=== PATIENT | female | born 1990 | race Caucasian/White ===

== ENCOUNTER 2017-08-27 00:56 | Emergency (ER) | payer MEDICAID, SELFPAY ==
[2017-08-27 00:57] VITALS: BP 115/81; PULSE 72; RESP 20; TEMP 36.6; O2SAT 100; BMI 23.5
[2017-08-27] MEDS: Naproxen 500 MG Tablet PO (01:07)
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
--- NOTE | 2017-08-27 02:12 | ED.DEP ---
ED Disposition - Plan for ED Patient: Disposition: Home or Assisted Living Chief Complaint: Upper Extremity Injury Instructions: ED Laceration Hand Prescriptions: Cephalexin [Keflex] 500 mg PO Q6 #40 cap Naproxen 500 mg PO BID PRN PRN #20 tab PRN Reason: Pain Referrals: Torri Gustafson MD [Primary Care Provider] -
[2017-08-27 02:20] VITALS: RESP 16
== END 2017-08-27 02:21 | disposition home or self-care (01) ==
PROVIDERS: Emergency Provider Emergency Medicine; Family Provider Internal Medicine; PCP Internal Medicine
DX: S61.212A Laceration without foreign body of right middle finger without damage to nail, initial encounter (principal); W25.XXXA Contact with sharp glass, initial encounter; Y93.9 Activity, unspecified; Y92.9 Unspecified place or not applicable; Y99.9 Unspecified external cause status; F32.9 Major depressive disorder, single episode, unspecified; F41.9 Anxiety disorder, unspecified; Z72.0 Tobacco use; Z79.899 Other long term (current) drug therapy
CPT/HCPCS: 73130; 99283

== ENCOUNTER 2017-10-01 04:02 | Emergency (ER) | payer MEDICAID, SELFPAY ==
[2017-10-01 04:03] VITALS: BP 124/75; PULSE 95; RESP 16; TEMP 36.8; O2SAT 98; BMI 23.2
[2017-10-01 04:24] LABS: Red Blood Cells-Urine 0 SEEN /hpf (0-5)
[2017-10-01 04:27] LABS: Color, Urine Yellow (Yellow); Glucose, Dipstick 50 mg/dl (Normal); Ketone-Dipstick 5 mg/dl (Negative); Leukocyte Esterase-Dipstick 500 /ul (Negative); Nitrite-Dipstick Positive (Negative); Occult Blood-Urine 50 /ul (Negative); Protein-Dipstick 30 mg/dl (Negative); Specific Gravity, Urine 1.025 (1.002-1.030); Urine Bilirubin Dipstick Negative (Negative); Urine Clarity Cloudy (Clear); Urine Urobilinogen 1 mg/dl (Normal)
[2017-10-01 04:45] LABS: Bacteria 1+ /hpf (None Seen); Squamous Epithelial Cells - UA 5-10 SEEN /hpf (5-10); White Blood Cells 50-100 SEEN /hpf (0-5)
[2017-10-01 04:46] LABS: Mucous, Urine 1+ /hpf (<or=2+)
[2017-10-01 04:47] LABS: Internal QC Validated? YES +Cl - CLEAR BKGD; Pregnancy, Urine Negative Negative
[2017-10-01] MEDS: Smz/Tmp Ds Tablet 1 TABLET PO (05:01)
[2017-10-01 07:21] LABS: Chlamydia Trachomatis by PCR POSITIVE (Negative); Neisserai gonorrhoeae by PCR Positive (Negative); Probe Check PASS
--- NOTE | 2017-10-01 07:23 | ED.RN ---
lab called with positive results. positive gonorrheaea and positive chalm. Dr. jaramillo made aware. orders to be placed at this time.
--- NOTE | 2017-10-01 07:32 | ED.VISSUMM ---
- ER Visit Summary Date of Service: 10/01/17 Chief Complaint: [Concern for sexually transmitted disease] History of Present Illness: The patient is a 26 F [presents to the emergency department with concern for possible STD. Patient states she received a phone call today from her ex-boyfriend who is just gotten out of half-way who told her that he was diagnosed in [facility] with gonorrhea and chlamydia both. Patient states that she has had a discharge for a couple of months. Patient has had some intermittent vaginal bleeding. Patient does not think she is as she has had a tubal ligation. Patient also has dysuria, urgency, and frequency. Patient denies any fever. Patient denies any vomiting.] Physical Examination: [HEENT-PERRLA, EOMI. Cranial nerves II through XII grossly intact. TMs clear. Mucous membranes moist. No adenopathy. Cardiovascular-regular rate and rhythm without murmur or ectopy Lungs-clear to auscultation, chest wall stable without crepitus or subcu emphysema Abdomen-normoactive bowel sounds, soft, nontender, no rebound or rigidity, no peritoneal signs. exam-normal external genitalia. On speculum exam there is small amount of whitish discharge within the vaginal vault with no blood noted. Patient had no cervical motion tenderness and no adnexal masses palpated. Uterus was normal in size. Extremities-intact ?4, normal range of motion, normal pulses, atraumatic] Test Results: [Urinalysis obtained was positive for nitrites, 50-100 WBCs, 5-10 epis. HCG was negative. Urine for GC and chlamydia both positive.] Emergency Department Course and Treatment: [Patient initially medicated with Bactrim as well as 2 g of Flagyl as she had 10-25 WBCs on her wet prep. Patient also will be medicated with a gram of Zithromax and 250 mg of Rocephin.] Treatment Plan: [Patient will be given Bactrim for 5 days. Patient will be given Pyridium. ] Disposition] discharge to home in stable condition Impression: [Urinary tract infection GC and Chlamydia vaginitis] This note was generated with [employer] software. It may contain incorrect words, spelling, and punctuation that were not noted in review of the chart prior to signing ED Disposition - Plan for ED Patient: Chief Complaint: Female C/O Referrals: Torri Gustafson MD [Primary Care Provider] -
--- NOTE | 2017-10-01 07:36 | ED.DCSUM_ITS ---
- ER Visit Summary Date of Service: 10/01/17 Chief Complaint: [Concern for sexually transmitted disease] History of Present Illness: The patient is a 26 F [presents to the emergency department with concern for possible STD. Patient states she received a phone call today from her ex-boyfriend who is just gotten out of senior living who told her that he was diagnosed in senior living with gonorrhea and chlamydia both. Patient states that she has had a discharge for a couple of months. Patient has had some intermittent vaginal bleeding. Patient does not think she is as she has had a tubal ligation. Patient also has dysuria, urgency, and frequency. Patient denies any fever. Patient denies any vomiting.] Physical Examination: [HEENT-PERRLA, EOMI. Cranial nerves II through XII grossly intact. TMs clear. Mucous membranes moist. No adenopathy. Cardiovascular-regular rate and rhythm without murmur or ectopy Lungs-clear to auscultation, chest wall stable without crepitus or subcu emphysema Abdomen-normoactive bowel sounds, soft, nontender, no rebound or rigidity, no peritoneal signs. exam-normal external genitalia. On speculum exam there is small amount of whitish discharge within the vaginal vault with no blood noted. Patient had no cervical motion tenderness and no adnexal masses palpated. Uterus was normal in size. Extremities-intact ?4, normal range of motion, normal pulses, atraumatic] Test Results: [Urinalysis obtained was positive for nitrites, 50-100 WBCs, 5-10 epis. HCG was negative. Urine for GC and chlamydia both positive.] Emergency Department Course and Treatment: [Patient initially medicated with Bactrim as well as 2 g of Flagyl as she had 10-25 WBCs on her wet prep. Patient also will be medicated with a gram of Zithromax and 250 mg of Rocephin.] Treatment Plan: [Patient will be given Bactrim for 5 days. Patient will be given Pyridium. ] Disposition] discharge to home in stable condition Impression: [Urinary tract infection GC and Chlamydia vaginitis] This note was generated with [employer] software. It may contain incorrect words, spelling, and punctuation that were not noted in review of the chart prior to signing ED Disposition - Plan for ED Patient: Chief Complaint: Female C/O Referrals: Torri Gustafson MD [Primary Care Provider] -
--- NOTE | 2017-10-01 07:36 | ED.DEP ---
ED Disposition - Plan for ED Patient: Chief Complaint: Female C/O Instructions: ED UTI Cystitis Female, Vaginal Infection: Bacterial Vaginosis Prescriptions: Phenazopyridine HCl [Pyridium] 200 mg PO BID PRN PRN #10 tab PRN Reason: Pain Smz/Tmp Ds [Bactrim Ds] 1 tab PO BID #10 tab Referrals: Torri Gustafson MD [Primary Care Provider] - 5-7 Days
[2017-10-01] MEDS: Azithromycin 250 MG Tablet 1000 MG PO (07:45)
[2017-10-01] MEDS: Ceftriaxone 500 MG Vial 250 MG IM (07:53)
[2017-10-01 08:17] VITALS: PULSE 70; RESP 15; O2SAT 97
== END 2017-10-01 08:15 | disposition home or self-care (01) ==
PROVIDERS: Emergency Provider Emergency Medicine; Family Provider Internal Medicine; PCP Internal Medicine
DX: A56.02 Chlamydial vulvovaginitis (principal); A54.02 Gonococcal vulvovaginitis, unspecified; N39.0 Urinary tract infection, site not specified; Z72.0 Tobacco use; Z98.51 Tubal ligation status; Z79.899 Other long term (current) drug therapy
CPT/HCPCS: 81001; 81025; 87210; 87491; 87591; 96372; 99283

== ENCOUNTER 2017-11-24 02:17 | Emergency (ER) | payer MEDICAID, SELFPAY ==
[2017-11-24 02:18] VITALS: BP 125/89; PULSE 105; RESP 16; TEMP 36.7; O2SAT 98; BMI 22.3
--- NOTE | 2017-11-24 02:27 | RAD_ITS ---
STUDY: X-RAY - RIGHT HAND REASON FOR EXAM: Female, 27 years old. Trauma to nail of ring finger. TECHNIQUE: 3 view(s) of the hand. COMPARISON: None. FINDINGS: Normal radiocarpal articulation. Normal distal radioulnar joint. Normal visualized carpal bones. Normal carpal articulations Normal carpometacarpal articulation of the thumb. Normal second through fifth carpometacarpal joints. Normal metacarpi. Normal metacarpophalangeal joint of the thumb. Normal interphalangeal joint of the thumb. Normal proximal and distal phalanges of the thumb. Normal metacarpophalangeal joints of the second through fifth fingers. Normal proximal and distal interphalangeal joints of the second through fifth fingers. Normal phalanges of the second through fifth fingers. The soft tissue structures are unremarkable. RAD/Hand Min 3 Views IMPRESSION: No fracture identified in the right hand. No radiopaque foreign body. Electronically Signed: Bar Peacock MD at 2:49 EDT , Service support ,
--- NOTE | 2017-11-24 03:29 | ED.VISSUMM ---
- ER Visit Summary Date of Service: 11/24/17 Chief Complaint: Right ring finger injury History of Present Illness: The patient is a 27 F presenting for evaluation secondary to ring finger injury. Patient reports that she slammed her ring finger in the car door earlier today. Patient reports that she has been trying to pull the nail off throughout the day, has been unable to due to pain. She denies any other injuries at this time. Tetanus status is up-to-date. Physical Examination: Physical exam unremarkable except for upper extremity exam. There is partial avulsion of the patient's fingernail with it only being attached under the cuticle of the nail matrix. Normal range of motion of finger. Normal capillary refill, normal sensation Test Results: X-ray of the hand shows no evidence of a tuft fracture Emergency Department Course and Treatment: Patient presented for evaluation secondary to a nail avulsion. X-rays were found to be negative. Patient's finger was prepped with Betadine, and then was draped in sterile fashion. The nail was carefully removed using suture scissors and hemostats, care was taken to preserve the patient's nail matrix. The patient's nailbed was inspected, and there was no evidence of nailbed laceration. The patient's nail at that time was then cleaned and debrided with Betadine. It was then placed back into the nail matrix and held in place with a single 4-0 simple interrupted chromic gut suture. Patient had a nonstick dressing placed over top of this, and a AlumaFoam splint. Patient was given [place] in the emergency department she will be discharged with a course of the same. She is to follow-up with primary care. She was given signs and symptoms for which to return. Disposition: Discharge Impression: 1. Right ring finger nail avulsion 2. Nail repair by ED physician This note was generated with [employer] dictation software. It may contain incorrect words, spelling, and punctuation that were not noted in review of the chart prior to signing ED Disposition - Plan for ED Patient: Disposition: Home or Assisted Living Chief Complaint: Upper Extremity Injury Diagnosis: Nail avulsion, finger Instructions: ED Avulsion Nail Complete Prescriptions: Hydrocodone Bitart/Apap 5-325 [[place] 5MG-325MG] 1 tab PO Q6H PRN PRN 3 Days #12 tab PRN Reason: Pain Referrals: Torri Gustafson MD [Primary Care Provider] - 3-5 Days
--- NOTE | 2017-11-24 03:35 | ED.DCSUM_ITS ---
- ER Visit Summary Date of Service: 11/24/17 Chief Complaint: Right ring finger injury History of Present Illness: The patient is a 27 F presenting for evaluation secondary to ring finger injury. Patient reports that she slammed her ring finger in the car door earlier today. Patient reports that she has been trying to pull the nail off throughout the day, has been unable to due to pain. She denies any other injuries at this time. Tetanus status is up-to-date. Physical Examination: Physical exam unremarkable except for upper extremity exam. There is partial avulsion of the patient's fingernail with it only being attached under the cuticle of the nail matrix. Normal range of motion of finger. Normal capillary refill, normal sensation Test Results: X-ray of the hand shows no evidence of a tuft fracture Emergency Department Course and Treatment: Patient presented for evaluation secondary to a nail avulsion. X-rays were found to be negative. Patient's finger was prepped with Betadine, and then was draped in sterile fashion. The nail was carefully removed using suture scissors and hemostats, care was taken to preserve the patient's nail matrix. The patient's nailbed was inspected, and there was no evidence of nailbed laceration. The patient's nail at that time was then cleaned and debrided with Betadine. It was then placed back into the nail matrix and held in place with a single 4-0 simple interrupted chromic gut suture. Patient had a nonstick dressing placed over top of this, and a AlumaFoam splint. Patient was given [place] in the emergency department she will be discharged with a course of the same. She is to follow-up with primary care. She was given signs and symptoms for which to return. Disposition: Discharge Impression: 1. Right ring finger nail avulsion 2. Nail repair by ED physician This note was generated with [employer] dictation software. It may contain incorrect words, spelling, and punctuation that were not noted in review of the chart prior to signing ED Disposition - Plan for ED Patient: Disposition: Home or Assisted Living Chief Complaint: Upper Extremity Injury Diagnosis: Nail avulsion, finger Instructions: ED Avulsion Nail Complete Prescriptions: Hydrocodone Bitart/Apap 5-325 [[place] 5MG-325MG] 1 tab PO Q6H PRN PRN 3 Days #12 tab PRN Reason: Pain Referrals: Torri Gustafson MD [Primary Care Provider] - 3-5 Days
[2017-11-24] MEDS: HYDROcodone Bitartrate/Apap 5/325 Tablet PO (03:41)
[2017-11-24 03:42] VITALS: RESP 18
== END 2017-11-24 03:45 | disposition home or self-care (01) ==
PROVIDERS: Emergency Provider Emergency Medicine; Family Provider Internal Medicine; PCP Internal Medicine
DX: S61.304A Unspecified open wound of right ring finger with damage to nail, initial encounter (principal); W23.0XXA Caught, crushed, jammed, or pinched between moving objects, initial encounter; Y93.9 Activity, unspecified; Y92.9 Unspecified place or not applicable; Y99.9 Unspecified external cause status; Z79.899 Other long term (current) drug therapy
CPT/HCPCS: 11750; 11760; 73130; 99283

== ENCOUNTER 2018-08-28 03:57 | Outpatient (REF) | payer SELFPAY ==
[2018-08-28] MEDS: LORazepam 1 MG Tablet PO (04:17)
[2018-08-28 05:12] LABS: Pregnancy, Serum, hCG Quali. NEGATIVE Negative (0-9 Nonpreg)
[2018-08-28 06:15] VITALS: BMI 22.3
== END 2018-08-28 07:30 | disposition home or self-care (01) ==
LOC: EDREF 03:57
PROVIDERS: Emergency Medicine
DX: Z04.41 Encounter for examination and observation following alleged adult rape (principal)
CPT/HCPCS: 84703; J3030

== ENCOUNTER 2018-11-07 22:58 | Emergency (ER) | payer MEDICAID, SELFPAY ==
[2018-11-07 22:59] VITALS: BP 140/83; PULSE 117; RESP 18; TEMP 36.6; O2SAT 98; BMI 22.3
--- NOTE | 2018-11-07 23:19 | ED.RN ---
PT WAS UP SET THAT WE WERE Michael CASTILLO TO ADMIT HER INTO INPATIENT DETOX FOR HER COCAINE ADDICTION. PT WAS STATING THAT ITS BECAUSE ITS [facility] AND THEY DON'T DO SHIT. PT THREW KLEENEX BOX ONTO THE FLOOR AND STORMED OUT OF ROOM. I GAVE EMOTIONAL SUPPORT TO PT AND FM WHERE I COULD. AWARE OF PT LEAVING PRIOR TO D/C INSTRUCTIONS.
--- NOTE | 2018-11-07 23:20 | ED.DCSUM_ITS ---
- ER Visit Summary Date of Service: 11/07/18 Chief Complaint: Detox/rehab History of Present Illness: The patient is a 28 F who wants detox or rehab from cocaine. She does admit to alcohol use is well every 2 to 3 days but is not a daily drinker. She states the cocaine is a larger problem her last drink was 1 hour ago. Her last cocaine use was at noon. She denies fevers vomiting diarrhea rashes headaches. She states that she has daily anxiety and chest pain which is a chronic issue and not new. She does have a history of colitis as well. Physical Examination: Heart rate 117 vitals otherwise normal Moist mucous membranes Heart regular tachycardia Lungs are clear Abdomen soft Alert No diaphoresis skin warm and dry Test Results: Not indicated Emergency Department Course and Treatment: Patient's CIWA-A is 11. I do not think that she is in alcohol withdrawal. I think her tachycardia is likely related to anxiety. The patient is in agreement with this as well. I explained to the patient that we do not do cocaine detox or rehab as an inpatient. She does not even want to be admitted. She states she was sent to the ER to start treatment. I explained that this is not something that would be managed or started from the emergency department and that she needed to follow-up as an outpatient. She became upset and left. Treatment Plan: [] Disposition: Discharge Impression: Cocaine abuse This note was generated with [employer] dictation software. It may contain incorrect words, spelling, and punctuation that were not noted in review of the chart prior to signing ED Disposition - Plan for ED Patient: Referrals: NOT,DEFINED [Primary Care Provider] -
== END 2018-11-07 23:31 | disposition home or self-care (01) ==
PROVIDERS: Emergency Provider Emergency Medicine
DX: F14.10 Cocaine abuse, uncomplicated (principal); R07.9 Chest pain, unspecified; F41.9 Anxiety disorder, unspecified; Z79.899 Other long term (current) drug therapy; Z87.19 Personal history of other diseases of the digestive system
CPT/HCPCS: 99282

== ENCOUNTER 2019-01-14 19:23 | Emergency (ER) | payer MEDICAID, SELFPAY ==
[2019-01-14 19:24] VITALS: BP 117/68; PULSE 88; RESP 16; TEMP 36.6; O2SAT 97; BMI 22.1
--- NOTE | 2019-01-14 22:07 | ED.VISSUMM ---
- ER Visit Summary Date of Service: 01/14/19 Chief Complaint: Withdrawal History of Present Illness: The patient is a 28 F who presents with chief complaint of I am having withdrawal from meth and fentanyl. She has been using what she thought was meth for the last couple of months but states it has been laced with fentanyl. She has not used for the past 3 to 4 days. She complains of feeling hot and cold. She complains of feeling anxious. She complains of nausea vomiting diarrhea and abdominal cramping although she is had no vomiting or diarrhea today. Physical Examination: Afebrile vitals normal No distress Heart regular rate and rhythm Lungs are clear Abdomen soft nontender nondistended Alert Moist mucous membranes Test Results: Not indicated Emergency Department Course and Treatment: Patient does not appear clinically dehydrated however she is requesting IV fluids. She will be given a liter of normal saline. She was given Zofran. She was given prescriptions for Phenergan and Bentyl and advised to follow-up as an outpatient. Patient discharged. Treatment Plan: [] Disposition: Discharge Impression: Polysubstance abuse Opiate withdrawal This note was generated with [employer] dictation software. It may contain incorrect words, spelling, and punctuation that were not noted in review of the chart prior to signing ED Disposition - Plan for ED Patient: Referrals: Torri Gustafson MD [Primary Care Provider] -
--- NOTE | 2019-01-14 22:09 | ED.DEP ---
ED Disposition - Plan for ED Patient: Instructions: Narcotic Withdrawal Prescriptions: Dicyclomine HCl [Bentyl] 20 mg PO TIDAC #20 cap Prescription Printed proMETHazine tablet [Phenergan] 25 mg PO Q6H PRN PRN #10 tab PRN Reason: Nausea Prescription Printed Referrals: Torri Gustafson MD [Primary Care Provider] -
[2019-01-14] MEDS: Dicyclomine 20 MG/2 ML Vial IM (22:23)
[2019-01-14] MEDS: Ondansetron 4 MG/2 ML Vial IV (22:23)
[2019-01-14 22:24] VITALS: RESP 18
[2019-01-14] MEDS: 0.9% Normal Saline 1,000 ML 999 ML IV (22:24)
[2019-01-14 23:24] VITALS: PULSE 80; RESP 18
== END 2019-01-14 23:25 | disposition home or self-care (01) ==
PROVIDERS: Emergency Provider Emergency Medicine; Family Provider Internal Medicine; PCP Internal Medicine
DX: F11.23 Opioid dependence with withdrawal (principal)
CPT/HCPCS: 96361; 96372; 96374; 99283; J2405

== ENCOUNTER 2019-05-03 17:25 | Emergency (ER) | payer MEDICAID, SELFPAY ==
[2019-05-03 17:26] VITALS: BP 124/96; PULSE 93; RESP 17; TEMP 36.3; O2SAT 100; BMI 19.5
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
[2019-05-03] MEDS: cycloBENZAPRine HCl 10 MG Tablet PO (17:56)
[2019-05-03] MEDS: Naproxen 500 MG Tablet PO (17:56)
[2019-05-03 18:25] LABS: Bacteria 0 SEEN /hpf (None Seen); Red Blood Cells-Urine 0 SEEN /hpf (0-5); White Blood Cells 0 SEEN /hpf (0-5)
[2019-05-03 18:27] LABS: Color, Urine Yellow (Yellow); Glucose, Dipstick Normal (Normal); Ketone-Dipstick Negative (Negative); Leukocyte Esterase-Dipstick Negative /ul (Negative); Nitrite-Dipstick Negative (Negative); Occult Blood-Urine Negative /ul (Negative); Protein-Dipstick 15 mg/dl (Negative); Specific Gravity, Urine 1.025 (1.002-1.030); Urine Bilirubin Dipstick Negative (Negative); Urine Clarity Sl. Cloudy (Clear); Urine Urobilinogen Normal (Normal)
[2019-05-03 18:51] LABS: Mucous, Urine 3+ /hpf (<or=2+); Squamous Epithelial Cells - UA 0-5 SEEN /hpf (5-10)
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
[2019-05-03 20:17] VITALS: PULSE 80; RESP 16; O2SAT 96
== END 2019-05-03 20:17 | disposition home or self-care (01) ==
LOC: ED 18:06
PROVIDERS: Emergency Provider Emergency Medicine; Family Provider Internal Medicine; PCP Internal Medicine
DX: S06.0X9A Concussion with loss of consciousness of unspecified duration, initial encounter (principal); S16.1XXA Strain of muscle, fascia and tendon at neck level, initial encounter; V89.2XXA Person injured in unspecified motor-vehicle accident, traffic, initial encounter; Y93.9 Activity, unspecified; Y92.9 Unspecified place or not applicable; Y99.9 Unspecified external cause status; G43.909 Migraine, unspecified, not intractable, without status migrainosus; F32.9 Major depressive disorder, single episode, unspecified; Z72.0 Tobacco use; Z79.899 Other long term (current) drug therapy
CPT/HCPCS: 70450; 72125; 81001; 99283

== ENCOUNTER 2019-06-25 11:34 | Emergency (ER) | payer MEDICAID, SELFPAY ==
[2019-06-25 11:35] VITALS: BP 120/68; PULSE 89; RESP 17; TEMP 36.6; O2SAT 100; BMI 21.1
[2019-06-25 12:13] LABS: Mucous, Urine 0 SEEN /hpf (<or=2+); Red Blood Cells-Urine 0 SEEN /hpf (0-5)
[2019-06-25] MEDS: 0.9% Normal Saline 1,000 ML 1000 ML IV (12:20)
[2019-06-25] MEDS: Dicyclomine 20 MG/2 ML Vial IM (12:20)
[2019-06-25 12:23] LABS: Color, Urine Yellow (Yellow); Glucose, Dipstick Normal (Normal); Ketone-Dipstick 5 mg/dl (Negative); Leukocyte Esterase-Dipstick 500 /ul (Negative); Nitrite-Dipstick Positive (Negative); Occult Blood-Urine 10 /ul (Negative); Protein-Dipstick 30 mg/dl (Negative); Urine Bilirubin Dipstick Negative (Negative); Urine Clarity Sl. Cloudy (Clear); Urine Urobilinogen Normal (Normal)
[2019-06-25 12:24] LABS: Absolute Lymphocyte Count 2.07 X10^3/uL (0.83-4.51); Absolute Neutrophil Count 9.1 X10^3/uL (2.0-7.7); Basophil# 0.04 X10^3/uL; Basophil% 0.3 % (0-1); Eosinophil# 0.14 X10^3/uL; Eosinophils% 1.1 % (0-5); Hematocrit 37.2 % (37-47); Lymphocyte # 2.07 X10^3/ul (4.0); Lymphocyte % 16.9 % (19-41); Mean Corp Hgb Conc 32.3 g/dL (32-36); Mean Corpuscular Hgb 31.7 pg (27.0-32.0); Mean Corpuscular Volume 98.2 fL (81-99); Mean Platelet Vol. 8.9 fl (6.2-12.0); Monocyte# 0.86 X10^3/uL; NRBC Flagged by Analyzer 0 % (0-5); Neutrophil # 9.08 X10^3/uL (2.7-7.7); Neutrophil % 74.1 % (47-70); Platelet Count 277 K/mm3 (150-450); RBC Distribution Width CV 12.2 % (11.6-14.6); RBC Distribution Width SD 44.3 fl (35.1-43.9); Red Blood Count 3.79 M/mm3 (4.2-5.4); White Blood Count 12.3 K/mm3 (4.4-11.0)
[2019-06-25 12:30] LABS: Bacteria 2+ /hpf (None Seen); Squamous Epithelial Cells - UA 10-25 SEEN /hpf (5-10); White Blood Cells 5-10 SEEN /hpf (0-5)
[2019-06-25 12:31] LABS: Internal QC Validated? YES +Cl - CLEAR BKGD; Pregnancy, Serum, hCG Quali. NEGATIVE Negative
[2019-06-25 12:41] LABS: ALB/GLOB Ratio 1.1 RATIO (0.9-2.4); AST(SGOT) 18 U/L (15-37); Alanine Aminotransfer ALT/SGPT 36 U/L (13-56); Albumin, Serum 3.2 g/dL (3.2-5.0); Alkaline Phosphatase 126 U/L (45-117); Anion Gap 5 (5-15); BUN 13 mg/dL (7-18); BUN/Creat Ratio 18.4 RATIO (10-20); Calcium,Total 8.6 mg/dL (8.5-10.1); Chloride 110 mmol/L (98-107); Creatinine, Serum 0.71 mg/dL (0.55-1.02); EST Glomerular Filtration Rate 103 mL/min (>60); Est Glom Filt Rate - Afr Amer 125 mL/min (>60); Estimated Creatinine Clearance 100.96 ml/min; Globulin 2.9 g/dL (2.2-4.2); Glucose 81 mg/dL (74-106); Potassium 3.8 mmol/L (3.5-5.1); Protein, Total 6.1 g/dL (6.4-8.2); Sodium Level 143 mmol/L (136-145)
--- NOTE | 2019-06-25 12:41 | CT_ITS ---
STUDY: CT ABDOMEN AND PELVIS WITHOUT CONTRAST REASON FOR EXAM: Female, 28 years old. PT STATED N/V/D, HX TUBAL LIGATION RADIATION DOSAGE (If Supplied By Facility): CTDIvol = ( 6.04 ) mGy, DLP = ( 288.42 ) mGycm TECHNIQUE: Transaxial images were obtained from the dome of the diaphragm to the symphysis pubis without oral contrast, and without intravenous contrast. Sagittal and coronal images were reconstructed. Individualized dose optimization techniques were used for this CT. COMPARISON: None. FINDINGS: The visualized lung bases are unremarkable. The visualized portions of the heart are within normal limits. Normal liver. Normal gallbladder and extrahepatic biliary system. Normal spleen. Normal pancreas. Normal bilateral adrenal glands. Normal right kidney. Normal left kidney. Normal visualized stomach. There is fluid within the small bowel and colon, suggestive of enterocolitis. There is non-visualization of the appendix. There is diffuse atherosclerotic calcification of the abdominal aorta, without a demonstrated aneurysm. Normal inferior vena cava. Normal retroperitoneum. Normal urinary bladder. There is free fluid about the cul-de-sac. Left tubal ligation clips are noted. Normal abdominal wall. Normal osseous structures. CT/Abdomen/Pelvis without Cont IMPRESSION: Fluid within the small bowel and colon, suggestive of enterocolitis. Mild free fluid. Electronically Signed: Harmony Cuevas MD at 13:18 EST Tel , Service support ,
[2019-06-25 12:43] LABS: Lactic Acid 1.3 mmol/L (0.4-1.9)
--- NOTE | 2019-06-25 12:48 | ED.DCSUM_ITS ---
- ER Visit Summary Date of Service: 06/25/19 Chief Complaint: [Abdominal pain and diarrhea] History of Present Illness: The patient is a 28 F [resents with symptoms that started 3 days ago. Patient states that initially she had vomiting and diarrhea both but the vomiting is now resolved. Patient's having episodes every 10 minutes of diarrhea. Patient states that she went through a box of antidiarrheal medication and it has not helped her. Patient describes the stool is mucousy. Patient has noted some blood on the toilet paper at times but no blood within the toilet bowl. She tells me she has history of colitis and she thinks it is Crohn's. She denies any sick contacts. She denies recent anti biotic usage. She denies urinary symptoms. Patient has had subjective fever at home and chills.] Physical Examination: [HEENT-PERRLA, EOMI. Cranial nerves II through XII gross ly intact. TMs clear. Mucous membranes moist. No adenopathy. Cardiovascular-regular rate and rhythm without murmur or ectopy Lungs-clear to auscultation, chest wall stable without crepitus or subcu emphysema Abdomen-hyperactive bowel sounds. Patient has diffuse tenderness on palpation. No rebound, rigidity, or peritoneal signs. Extremities-intact ?4, normal range of motion, normal pulses, atraumatic] Test Results: [CBC with differential obtained showed a white count of 12.3, hemoglobin 12, hematocrit 37, platelets 277. Chemistries were unremarkable. LFTs unremarkable. Urinalysis showed 500 leukocyte esterase and positive nitrites as well as 10-25 epis and 5-[address] WBCs[address] hCG was negative. [address] scan of the abdomen pelvis without contrast ordered which showed fluid throughout the small bowel and colon consistent with enterocolitis. Stool was sent for enteric pathogens however those results will not be available today. Stool for C. difficile was negative.] Emergency Department Course and Treatment: [Given a liter of the same fluid bolus. Patient was treated with Lomotil 2 tabs p.o. and given Bentyl 20 mg IM.] Treatment Plan: [I suspect viral etiology to her diarrhea. Patient will be treated symptomatically with Bentyl and Lomotil. Patient advised to push fluids. Patient to follow-up with primary care physician Dr. Gustafson in 3 to 5 days. Patient advised to return if worsening pain, fever, persistent vomiting, diarrhea, or condition should worsen anyway.] Disposition: [Discharged home in stable condition] Impression: [Viral gastroenteritis] This note was generated with [employer] dictation software. It may contain incorrect words, spelling, and punctuation that were not noted in review of the chart prior to signing ED Disposition - Plan for ED Patient: Referrals: Torri Gustafson MD [Primary Care Provider] -
--- NOTE | 2019-06-25 14:14 | DCINST.ED_ITS ---
ED Disposition - Plan for ED Patient: Instructions: GASTROENTERITIS, Viral (5y-Adult) Prescriptions: Dicyclomine HCl [Bentyl] 20 mg PO TIDAC #20 cap Transmission Status: Pending to [facility]/pharmacy #[id number] Diphenoxylate/Atrop [Lomotil] 1 tablet PO 4X/DAY #20 tablet Transmission Status: Received by [facility]/pharmacy #[id number] Referrals: Torri Gustafson MD [Primary Care Provider] - 3-5 Days
--- NOTE | 2019-06-25 14:14 | ED.DEP ---
ED Disposition - Plan for ED Patient: Instructions: GASTROENTERITIS, Viral (5y-Adult) Prescriptions: Dicyclomine HCl [Bentyl] 20 mg PO TIDAC #20 cap Transmission Status: Pending to [facility]/pharmacy #[id number] Diphenoxylate/Atrop [Lomotil] 1 tablet PO 4X/DAY #20 tablet Transmission Status: Received by [facility]/pharmacy #[id number] Referrals: Torri Gustafson MD [Primary Care Provider] - 3-5 Days
[2019-06-25 14:24] VITALS: BP 109/70; PULSE 84; RESP 16; O2SAT 99
[2019-06-25] MEDS: Diphenoxylate/Atrop 1 Tablet 2 TABLET PO (14:24)
== END 2019-06-25 14:30 | disposition home or self-care (01) ==
LOC: ED 11:55
PROVIDERS: Emergency Provider Emergency Medicine; Family Provider Internal Medicine; PCP Internal Medicine
DX: A08.4 Viral intestinal infection, unspecified (principal); Z72.0 Tobacco use; Z79.899 Other long term (current) drug therapy; Z98.51 Tubal ligation status
CPT/HCPCS: 74176; 80053; 81001; 83605; 84703; 85025; 87077; 87086; 87088; 87186; 87493; 87506; 96360; 96361; 96372; 99284; J7030

== ENCOUNTER 2019-08-19 17:28 | Emergency (ER) | payer MEDICAID, SELFPAY ==
[2019-08-19 17:29] VITALS: BP 116/71; PULSE 98; RESP 16; TEMP 36.1; O2SAT 100; BMI 21.8
[2019-08-19] MEDS: metroNIDAZOLE 500 MG Tablet PO (18:10)
--- NOTE | 2019-08-19 18:29 | ED.VIS.GEN ---
History of Present Illness Chief Complaint: Med Refill Informant: Patient Onset: Today Narrative: Presents for refill of Lexapro for which she takes 20 mg daily for last 5 years she ran out 5 days ago. Takes it for anxiety and depression. Also stated noting malodorous vaginal discharge for last couple days. History of similar with bacterial vaginosis. No recent antibiotics. Sexually active single partner, bilateral tubal ligation. No concerns for STD. However would like screening. No abdominal pain. No nausea or vomiting. No fevers. Prior similar symptoms: Yes Past Medical History - Allergies and Home Meds Allergies/Adverse Reactions: Allergies No Known Allergies Allergy (Verified 06/25/19 11:35) Primary Care Physician: Torri Gustafson MD [Primary Care Provider] - Past Medical History: - - Anxiety and depression Surgical History: no surgical history Smoking Status: Current every day smoker - Family History Maternal Family History: Reports: - - mother has had admission for depression in the past. Review of Systems General: Denies: Chills, Fever, Sweats Eyes: Denies: Visual changes - bilaterally, Diplopia ENT: Denies: Rhinorrhea, Sore throat Cardiovascular: Denies: Chest pain, Palpitations Respiratory: Denies: Dyspnea, Cough, Dyspnea on exertion Gastrointestinal: Denies: Abdominal pain, Nausea, Vomiting, Diarrhea, Melena, Hematochezia Genitourinary: Denies: Dysuria, Hematuria, Frequency Musculoskeletal: Denies: Back pain, Extremity Pain Skin: Denies: Rash, Wounds Neurological: Denies: Headache, Weakness, Numbness Physical Exam Vital Signs/Narrative: Vital Signs Temp Pulse Resp BP Pulse Ox 08/19/19 17:29 97 F L 98 16 116/71 100 General: Well nourished, Well developed, No Acute Distress Head: Normocephalic, Atraumatic Eyes: Perrl, EOMI ENT: Moist mucous membranes, No rhinorrhea Neck: Supple, Nontender Cardiovascular: Regular rate, Regular rhythm, No murmurs Respiratory: No distress, CTA bilaterally, Chest nontender Abdomen: Soft, Nontender, Nondistended, Normal bowel sounds Back: Nontender, Normal Inspection Extremities: Nontender, No edema Skin: Normal color, No rash Neurological: Alert, Oriented x3, Cranial nerves II-XII grossly intact, Normal Strength, Normal Sensation Psychological: Normal affect, Normal Mood Diagnostic/Tx/Re-eval - Medical Decision Making Nontoxic vital signs stable. Restart her Lexapro with 30-day prescription. Urine STD screening sent. Will Treat patient for bacterial vaginitis symptoms started on Flagyl. She does not drink alcohol. She will follow-up as an outpatient. All questions were answered. ED Disposition - Plan for ED Patient: Disposition: Home or Assisted Living Diagnosis: Vaginitis, Medication refill Instructions: Med Refill, VAGINITIS, Bacterial Prescriptions: metroNIDAZOLE [Flagyl] 500 mg PO BID #13 tab Transmission Status: Pending to [facility]/pharmacy #[id number] Escitalopram Oxalate [Lexapro] 20 mg PO DAILY #30 tab Transmission Status: Pending to [facility]/pharmacy #[id number] Referrals: Torri Gustafson MD [Primary Care Provider] - 5-7 Days Additional Instructions: STD screening pending.
[2019-08-19] MEDS: Escitalopram Oxalate 20 MG Tablet PO (18:46)
[2019-08-19 20:44] LABS: Chlamydia Trachomatis by PCR Negative (Negative); Neisserai gonorrhoeae by PCR Positive (Negative); Probe Check PASS
--- NOTE | 2019-08-19 21:06 | ED.RN ---
PT positive for gonorrhea. Dr Coughlin consulted. PT needs to return for Rocephin IM and Zithromax PO. PT called and general message left to call ED back. [id number]/19/19.
== END 2019-08-19 18:49 | disposition home or self-care (01) ==
PROVIDERS: Emergency Provider Emergency Medicine; PCP Internal Medicine
DX: Z76.0 Encounter for issue of repeat prescription (principal); N76.0 Acute vaginitis; B96.89 Other specified bacterial agents as the cause of diseases classified elsewhere; F32.9 Major depressive disorder, single episode, unspecified; F41.9 Anxiety disorder, unspecified; F17.200 Nicotine dependence, unspecified, uncomplicated; Z79.899 Other long term (current) drug therapy
CPT/HCPCS: 87491; 87591; 99284

== ENCOUNTER 2019-10-11 22:28 | Emergency (ER) | payer MEDICAID, SELFPAY ==
[2019-10-11 22:29] VITALS: BP 127/81; PULSE 109; RESP 14; TEMP 37; O2SAT 100; BMI 21.7
== END 2019-10-11 22:57 | disposition left against medical advice (07) ==
LOC: ED 22:51
PROVIDERS: Emergency Provider Emergency Medicine; PCP Internal Medicine
DX: Z53.21 Procedure and treatment not carried out due to patient leaving prior to being seen by health care provider (principal)
CPT/HCPCS: 99281

== ENCOUNTER 2020-05-31 15:04 | Emergency (ER) | payer MEDICAID, SELFPAY ==
[2020-05-31 15:05] VITALS: BP 114/68; PULSE 78; RESP 16; TEMP 36.6; O2SAT 99; BMI 22.6
--- NOTE | 2020-05-31 15:14 | RAD_ITS ---
STUDY: X-RAY CHEST REASON FOR EXAM: Female, 29 years old. DIARRHEA, COUGH, SHORTNESS OF BREATH LOSS OF TASTE AND SMELL X 3 DAYS TECHNIQUE: Frontal view of the chest COMPARISON: 01 June 2016 FINDINGS: Lungs are moderately hyperinflated and clear.. There is no demonstrated pleural abnormality. Normal size heart. Normal mediastinum and radha. Normal visualized pulmonary arteries. Normal visualized aortic arch and descending thoracic aorta. Normal visualized thoracic spine. Normal visualized ribs, clavicles, and shoulders. There is no demonstrated abnormality of the visualized soft tissue structures of the upper abdomen. RAD/Chest 1 View (Portable) IMPRESSION: 1. No acute disease. 2. Hyperinflation, small airway disease, possibly asthma versus emphysema. Electronically Signed: Maria C Ramirez, at 15:38 EST Tel , Service support ,
[2020-05-31 15:31] LABS: Bacteria 0 SEEN /hpf (None Seen); Mucous, Urine 0 SEEN /hpf (<or=2+)
[2020-05-31 16:15] LABS: Color, Urine Straw (Yellow); Glucose, Dipstick Normal (Normal); Ketone-Dipstick Negative (Negative); Leukocyte Esterase-Dipstick 500 /ul (Negative); Nitrite-Dipstick Negative (Negative); Occult Blood-Urine 10 /ul (Negative); Protein-Dipstick 15 mg/dl (Negative); Urine Bilirubin Dipstick Negative (Negative); Urine Clarity Cloudy (Clear); Urine Urobilinogen Normal (Normal)
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
--- NOTE | 2020-05-31 16:32 | ED.DEP ---
ED Disposition - Plan for ED Patient: Disposition: Home or Assisted Living Instructions: ED Viral Syndrome (Adult) Referrals: Torri Gustafson MD [Primary Care Provider] - 3-5 Days if not improving Additional Instructions: Plenty of fluids and rest. Imodium 2 mg after each diarrhea episode. Follow-up with your doctor if not improving.
[2020-05-31] MEDS: Azithromycin 250 MG Tablet 1000 MG PO (16:51)
[2020-05-31] MEDS: Loperamide 2 MG Capsule 4 MG PO (16:51)
[2020-05-31 16:56] LABS: Red Blood Cells-Urine 0-5 SEEN /hpf (0-5); Squamous Epithelial Cells - UA 0-5 SEEN /hpf (5-10); White Blood Cells 25-50 SEEN /hpf (0-5)
[2020-05-31] MEDS: Ceftriaxone 500 MG Vial 250 MG IM (17:15)
[2020-05-31 17:40] VITALS: BP 117/72; PULSE 74; RESP 17; TEMP 36.7; O2SAT 98
== END 2020-05-31 17:42 | disposition home or self-care (01) ==
LOC: ED 16:39
PROVIDERS: Emergency Provider Emergency Medicine; PCP Internal Medicine
DX: J06.9 Acute upper respiratory infection, unspecified (principal); R19.7 Diarrhea, unspecified; Z20.828 Contact with and (suspected) exposure to other viral communicable diseases; Z20.2 Contact with and (suspected) exposure to infections with a predominantly sexual mode of transmission; Z72.0 Tobacco use
CPT/HCPCS: 71045; 81001; 87426; 96372; 99283

== ENCOUNTER 2020-06-29 04:21 | Emergency (ER) | payer MEDICAID, SELFPAY ==
[2020-06-29 04:21] VITALS: PULSE 106; RESP 22; O2SAT 97
[2020-06-29 04:22] VITALS: BP 102/83; PULSE 122; RESP 22; TEMP 36.9; BMI 23.7
[2020-06-29 04:27] VITALS: O2SAT 100
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
[2020-06-29] MEDS: fentaNYL 100 MCG/2 ML Ampul 50 MCG IV ×2 (04:30→04:52)
[2020-06-29] MEDS: Ondansetron 4 MG/2 ML Vial IV (04:30)
[2020-06-29 04:34] LABS: Absolute Lymphocyte Count 3.42 X10^3/uL (0.83-4.51); Absolute Neutrophil Count 4.9 X10^3/uL (2.0-7.7); Basophil# 0.06 X10^3/uL; Basophil% 0.6 % (0-1); Eosinophil# 0.29 X10^3/uL; Hematocrit 37.6 % (37-47); Hemoglobin 12.4 g/dL (12.0-15.0); Lymphocyte # 3.42 X10^3/ul (4.0); Lymphocyte % 35.8 % (19-41); Mean Platelet Vol. 8.7 fl (6.2-12.0); Monocyte# 0.85 X10^3/uL; Monocyte% 8.9 % (0-10); NRBC Flagged by Analyzer 0 % (0-5); Neutrophil # 4.91 X10^3/uL (2.7-7.7); Neutrophil % 51.5 % (47-70); Platelet Count 347 K/mm3 (150-450); RBC Distribution Width SD 42.2 fl (35.1-43.9); White Blood Count 9.6 K/mm3 (4.4-11.0)
[2020-06-29 04:42] LABS: Prothrombin Time (Protime)PT. 12.2 SECONDS (11.7-14.9)
[2020-06-29 04:43] LABS: Internal QC Validated? YES +Cl - CLEAR BKGD; Partial Thromboplast Time 22.8 Seconds (24.1-36.2); Pregnancy, Serum, hCG Quali. NEGATIVE Negative
[2020-06-29] MEDS: Cefazolin 1 GM/50 ML BAG IV (04:45)
[2020-06-29 04:50] LABS: ALB/GLOB Ratio 1.1 RATIO (0.9-2.4); AST(SGOT) 25 U/L (15-37); Alanine Aminotransfer ALT/SGPT 35 U/L (13-56); Albumin, Serum 3.8 g/dL (3.2-5.0); Alkaline Phosphatase 155 U/L (45-117); Anion Gap 6 (5-15); BUN 17 mg/dL (7-18); BUN/Creat Ratio 21.9 RATIO (10-20); Calcium,Total 8.6 mg/dL (8.5-10.1); Chloride 109 mmol/L (98-107); Creatinine, Serum 0.78 mg/dL (0.55-1.02); EST Glomerular Filtration Rate 92 mL/min (>60); Est Glom Filt Rate - Afr Amer 112 mL/min (>60); Estimated Creatinine Clearance 91.07 ml/min; Globulin 3.5 g/dL (2.2-4.2); Glucose 72 mg/dL (74-106); Potassium 3.5 mmol/L (3.5-5.1); Protein, Total 7.3 g/dL (6.4-8.2); Sodium Level 141 mmol/L (136-145)
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
[2020-06-29 05:19] VITALS: PULSE 90; RESP 2; O2SAT 99
[2020-06-29 05:21] VITALS: BP 118/90; PULSE 103; RESP 17; O2SAT 99
[2020-06-29] MEDS: HYDROmorphone 1 MG/ML Syringe IV (05:22)
== END 2020-06-29 05:40 | disposition short-term general hospital (02) ==
LOC: ED 04:35
PROVIDERS: Emergency Provider Emergency Medicine; PCP Internal Medicine
DX: S42.11 Fracture of body of scapula (principal); S41.141A Puncture wound with foreign body of right upper arm, initial encounter; W34.00XA Accidental discharge from unspecified firearms or gun, initial encounter; Y93.9 Activity, unspecified; Y92.009 Unspecified place in unspecified non-institutional (private) residence as the place of occurrence of the external cause; Y99.9 Unspecified external cause status; F32.9 Major depressive disorder, single episode, unspecified; Z72.0 Tobacco use; Z79.899 Other long term (current) drug therapy
CPT/HCPCS: 71260; 80053; 84703; 85025; 85610; 85730; 90715; 96365; 96375; 99285; Q9967; A4216; J2405

== ENCOUNTER 2021-05-04 01:27 | Emergency (ER) | payer MEDICAID, SELFPAY ==
[2021-05-04 01:28] VITALS: BP 128/86; PULSE 76; RESP 16; TEMP 36.6; O2SAT 100; BMI 25.7
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
[2021-05-04] MEDS: SUMAtriptan 6 MG/0.5 ML Vial SC (02:09)
[2021-05-04] MEDS: Ketorolac 60 MG/2 ML Vial IM (03:05)
[2021-05-04 06:54] VITALS: RESP 16
--- NOTE | 2021-05-04 07:07 | NURSING ---
CALLED FOR A TAXI
== END 2021-05-04 07:44 | disposition home or self-care (01) ==
PROVIDERS: Emergency Provider Emergency Medicine; PCP Internal Medicine
DX: G43.909 Migraine, unspecified, not intractable, without status migrainosus (principal); F17.210 Nicotine dependence, cigarettes, uncomplicated; Z79.899 Other long term (current) drug therapy
CPT/HCPCS: 96372; 99284; J3030

== ENCOUNTER → 2021-12-24 | Outpatient (CLI) | payer MEDICAID, SELFPAY ==
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
== END | disposition home or self-care (01) ==
LOC: PSN 13:17
PROVIDERS: PCP Nurse Practitioner; Referring Provider Nurse Practitioner; Visit Provider Nurse Practitioner
DX: M25.511 Pain in right shoulder (principal); M79.601 Pain in right arm; G89.29 Other chronic pain; R20.0 Anesthesia of skin; R20.2 Paresthesia of skin; Z87.828 Personal history of other (healed) physical injury and trauma
CPT/HCPCS: 95886; 95910

== ENCOUNTER 2022-01-21 08:11 | Emergency (ER) | payer MEDICAID, SELFPAY ==
[2022-01-21 08:11] VITALS: BP 117/59; PULSE 66; RESP 14; TEMP 36; O2SAT 98; BMI 28.8
--- NOTE | 2022-01-21 08:20 | EDS_ITS ---
HPI History of Present Illness Chief Complaint: Bite Informant: patient Onset/Context/Timing Onset: Yesterday Context: Gradual Onset Timing: Continuous Quality of Pain: - (itchy, sore) Location: right upper arm Current Severity: Moderate Maximum Severity: Moderate Worsened by: palpation Relieved by: leaving alone Associated Symptoms Associated Symptoms: Negative for Parasthesia, Weakness or Loss of Funtion Narrative Narrative: Patient presents saying she has a painful itchy insect bite. She noticed it yesterday, she states there are 2 bite mitchell which I cannot appreciate, and she keeps calling it a bite but yet she did not ever noticed a bite or sting or swollen insect or any other obvious etiology of this. She states she has never had a reaction like this before to any other insect bites or stings. She denies any systemic symptoms such as dyspnea, fevers or chills, lightheadedness, swelling in places other than the affected area on her right upper arm, but states that it is really painful. ROS ROS ED Constitutional Constitutional ED: Denies chills or fever(s) ENT ENT ED: Denies sore throat or throat swelling Cardiovascular Cardiovascular: Denies lightheadedness, palpitations, racing heartbeat or syncope Respiratory/Chest Respiratory/Chest: Denies dyspnea or dyspnea on exertion Musculoskeletal Musculoskeletal: Reports extremity pain; Denies neck pain Integumentary Reports other Details: Right upper arm red itchy painful area ; Denies Abrasions Neurologic Neurologic: Denies paresthesias or weakness [facility] Medical History (Updated 01/21/22 @ 08:[address] Jose Domínguez MD) Depression Migraine Home Medications sumatriptan succinate 100 mg tablet (Imitrex) 100 mg PO Q2H PRN Headache 05/04/21 [History Last Taken Unknown] sumatriptan succinate 6 mg/0.5 mL subcutaneous pen injector (Imitrex STATdose Pen) See Rx Instructions .Route .COMPLEX #1 mL 05/04/21 [Rx Last Taken Unknown] sulfamethoxazole 800 mg-trimethoprim 160 mg tablet 1 tab PO BID #14 TABLETS 01/21/22 [Rx Last Taken Unknown] Allergy/AdvReac Type Severity Reaction Status Date / Time No Known Allergies Allergy Verified 01/21/22 08:14 Social History Smoking Status: Current every day smoker tobacco type: cigarettes EXAM Physical Exam Const Vital Signs: 01/21/22 08:11 Temperature 96.8 F L Temperature Source Temporal Pulse Rate 66 Respiratory Rate 14 Blood Pressure 117/59 L Blood Pressure Mean 78 Pulse Ox 98 Oxygen Delivery Method Room Air Positive well nourished and well developed Constitutional Narrative: Well-appearing in no distress General Appearance ED: well developed and NAD HEENT Reports moist mucous membranes HEENT Narrative: Normal voice. No stridor. Neck full ROM and supple Resp normal respiratory effort Back/Spine normal ROM and normal to inspection Extremity Extremity Narrative: Tender indurated area right upper arm medially see skin exam. Full range of motion all joints all compartment soft and nondistended. No lymphangitis. Neuro oriented x3, no focal motor deficits and no sensory deficits noted Sensorium / Orientation: alert Psych mental status grossly normal and thought process normal Skin Skin Narrative: There appears to be a large wheal and flare, right medial upper arm. No joint affected. The center portion of the wheal is indurated, and tender without any expressible discharge. I am not able to appreciate obvious bite rosy of any sort. There are no bullae, petechiae, necrotic tissue, cyanosis. The flare is nontender, blanches. MDM MDM MDM Narrative Medical decision making narrative: This is probably actually an insect sting with a localized wheal and flare reaction. It is very large, and unlikely to be an insect bite that was secondarily infected since it has not even been 24 hours and she has a normal healthy immune system. However, since she did not see or feel anything obvious that is responsible for this, as I discussed with her I am prescribing her Bactrim to cover for the possibility of a spontaneously occurring MRSA abscess because she states that hurts so bad. She is comfortable with that plan. Discharge Plan Triage Chief Complaint: Bite ED Provider: Jsoe Domínguez Dx/Rx/DC Orders Clinical Impression: Skin lesion of right arm Instructions: ED Abscess Antibiotic Treatment Only, ED Insect Sting, Local Reaction Prescriptions: New sulfamethoxazole-trimethoprim [sulfamethoxazole-trimethoprim] 1 TABLET tablet 1 tab PO BID Qty: 14 0RF No Action sumatriptan succinate [Imitrex] 100 mg Tablet 100 mg PO Q2H PRN (Reason: Headache) sumatriptan succinate [Imitrex STATdose Pen] 6 mg/0.5 mL pen injector See Rx Instructions .ROUTE .COMPLEX Qty: 1 1RF Rx Instructions: subcutaneously as needed every 4 hours up to 3 times total. Primary Care Provider: Elva Wang NP Referrals: Elva Wang HYDRAULIC GOVERNOR ASSEMBLER, HYDRAULIC GOVERNOR ASSEMBLER-C [Primary Care Provider] - As Needed Activity Restrictions/Additional Instructions: Probably an insect sting/bite with a localized immune reaction, which will resolve on its own and symptoms could be treated topically with Benadryl and/or hydrocortisone cream, but not able to rule out the possibility of an early abscess, so take antibiotic as prescribed until finished. If worsening despite this, and/or draining purulence/pus, return to ER for to have it opened and drained. Disposition Disposition: Home, Self Care
== END 2022-01-21 08:34 | disposition home or self-care (01) ==
LOC: ED 08:29
PROVIDERS: Emergency Provider Emergency Medicine; PCP Nurse Practitioner; Visit Provider Emergency Medicine
DX: L98.9 Disorder of the skin and subcutaneous tissue, unspecified (principal); L50.9 Urticaria, unspecified; F17.210 Nicotine dependence, cigarettes, uncomplicated
CPT/HCPCS: 99282

== ENCOUNTER 2022-09-17 06:26 | Day surgery (SDC) | payer MEDICAID, SELFPAY ==
--- NOTE | 2022-09-16 12:59 | PCM.HP.BLA ---
History and Physical Date of Admission: 09/17/22 Pre-Op History and Physical ? HPI: The patient is a 31 year old female presenting for discussion regarding hysteroscopy, D&C, polypectomy. She has abnormal uterine bleeding, endometrial polyp fragments on endometrial biopsy. Pre-operative visit. She is scheduled for Hysteroscopy D&C and polypectomy, for AUB, EM Polyp on 09/17/22. Procedure discussed along with risks, benefits and complications. Other alternatives discussed for management. Consent form signed? Yes. ? ? PAST MEDICAL HISTORY PAST MEDICAL HISTORY Diagnosis Date ? Abnormal glandular Papanicolaou smear of cervix 2007 ? Abn. Pap smear (cervix) ? Anxiety disorder ? ? Attention deficit disorder without mention of hyperactivity ? ? Cellulitis 11/24/2016 ? Closed fracture of left scapula 06/29/2020 ? Depression ? ? Irregular menses 04/24/2013 ? Migraines ? ? Mood disorder (HCC) ? ? Pelvic pain in female 04/24/2013 ? Polysubstance abuse (HCC) ? ? Tooth pain 05/03/2014 ? Trauma 06/29/2020 ? ? PAST SURGICAL HISTORY PAST SURGICAL HISTORY Procedure Laterality Date ? COLPOSCOPY CERVIX UPPER/ADJACENT VAGINA ? ? ? Colposcopy ? CONTRACEPT IUD ? 09/28/2007 ? LAPAROSCOPIC TUBAL LIGATION/RING/CLIP ? 03/09/12 ? Dr. Alves ? ? ? CURRENT MEDICATIONS Current Outpatient Medications Medication Sig Dispense Refill ? amitriptyline (ELAVIL) 10 mg tablet Take 1 tablet by mouth daily at bedtime. 30 tablet 5 ? escitalopram oxalate (LEXAPRO) 20 mg tablet Take 1 tablet by mouth once daily. 30 tablet 5 ? SUMAtriptan (IMITREX) 100 mg tablet Take 1 tablet by mouth as needed. 9 tablet 5 ? acetaminophen (TYLENOL) 325 mg tablet Take 2 tablets by mouth every 6 hours as needed for Pain. ? ? ? megestrol (MEGACE) 40 mg tablet Take 1 tablet (40 mg) by mouth twice daily for 5 days. 10 tablet 0 ? megestrol (MEGACE) 20 mg tablet Take 1 tablet (20 mg) by mouth once daily for 5 days. Start after finishing the 40 mg prescription. 5 tablet 0 ? No current facility-administered medications for this visit. ? ? ALLERGIES: Patient has no known allergies. ? PERSONAL HISTORY: SOCIAL HISTORY Social History ? Tobacco Use ? Smoking status: Former ? ? Packs/day: 0.50 ? ? Years: 7.00 ? ? Pack years: 3.50 ? ? Types: Cigarettes ? Smokeless tobacco: Never ? Tobacco comments: ? ? quit during Vaping Use ? Vaping Use: current everyday user ? Substances: Nicotine, Flavoring Substance Use Topics ? Alcohol use: Not Currently ? ? Comment: in recovery ? Drug use: Yes ? ? Types: Cocaine ? ? Comment: sober for 7 months, in a recovery program ? FAMILY HISTORY: FAMILY HISTORY FAMILY HISTORY Problem Relation Age of Onset ? other (DEPRESSION) Mother ? ? other (ALCOHOLIC) Father ? ? Cancer Maternal Grandfather ? ? BRAIN ? Coronary Artery Disease Paternal Grandmother ? ? Diabetes Maternal Aunt ? ? ? REVIEW OF SYMPTOMS: negative except as noted above PHYSICAL EXAMINATION: ? VITALS: Blood pressure 100/70, pulse 78, resp. rate 16, height 5' 4 (1.626 m), weight 184 lb (83.5 kg), last menstrual period 08/26/2022. ? GENERAL: The patient is well nourished, well hydrated in no acute distress. , The patient is oriented to time, place, and person. NECK: full range of motion LUNGS: Clear to auscultation bilaterally. no wheezes, rhonchi or rales HEART: Regular rate and rhythm, Normal heart sounds, and No murmurs or gallops GENITALIA: deferred WET PREP: Not indicated ? IMPRESSION: AUB, EM polyp ? PLAN: Hysteroscopy, D&C, polypectomy with symphion ? Pt has been counseled on risks/benefits and alternatives of surgery including but not limited to anesthesia, bleeding, infection, uterine perforation with subsequent injury to pelvic structures including bowel, bladder, ureters and vessels. Pt wishes to proceed with surgery at this time. ? Pre and post op instructions reviewed , consent signed. ? I have reviewed and updated past medical and surgical history, medications and allergies Poonam Alves MD
[2022-09-17] VITALS (7 sets, daily range): BP systolic 94–104; BP diastolic 60–69; PULSE 70–78; RESP 16–18; TEMP 36.3–36.8; O2SAT 93–100; BMI 31.2
[2022-09-17] MEDS: Lactated Ringers 1,000 ML 15 ML IV (06:57)
[2022-09-17 07:53] LABS: Internal QC Validated? YES +Cl - CLEAR BKGD; Pregnancy, Urine Negative Negative
--- NOTE | 2022-09-17 07:54 | OP.PCM_ITS ---
Report of Operation Date of Procedure: 09/17/22 Pre-Operative Diagnosis: AUB, Endometrial Polyp Post-Operative Diagnosis: AUB Surgery/Procedure Performed:: Hysteroscopy, D&C Description of Surgical Findings:: Both tubal ostia visualized, no polyp noted. some tissue noted on anterior aspect- otherwise normal. Surgeon: Poonam Hess Type of Anesthesia: MAC Special Medications: none Specimen's removed: endometrial curettings Estimated Blood Loss (mL): <5 Fluids Replaced: 500 Description of Procedure: Informed consent was obtained the patient was taken the operating room she was placed in supine position. She was given anesthesia. She was then placed in the [facility] where she was prepped and draped in the normal sterile fashion. At this time the weighted speculum was placed in the posterior fornix of vagina. Single-tooth tenaculum was used to gently grasp the anterior lip the cervix. At this time the uterine cavity was sounded to approximately 9cm. Gentle dilatation was performed once adequate dilatation of the cervix was achieved the hysteroscope using normal saline as a distention medium was placed. Tubal ostia visualized. This time hysteroscopy was complete. Sharp curettage performed to obtain endometrial curettings. Tissue will be sent to pathology for evaluation. Tenaculum removed. Good hemostasis. Instrument, lap count correct x 2. Vaginal Sweep was negative. Fluid deficit was 0 Grafts/Implants Used: none Procedure Start Time: 08:11 Procedure Stop Time: 08:19 Complications non Admit VTE Documentation VTE Present on Admission: Yes VTE Mechan Device Prophylaxis: SCD's VTE Pharm Prophylaxis ordered?: No Reason prophylaxis not ordered:: Procedure Not Indicated
--- NOTE | 2022-09-17 07:56 | DCINST_ITS ---
Discharge Instructions Procedure D&C Diet Discharge Diet: No restrictions Activity May resume sexual activity in: 1 week Dressing / Incision Call your doctor if you observe: Fever of 101 or Higher, Inability to urinate, Using more than 1 pad per hour and Uncontrolled pain Follow Up Care Please Follow Up With: Poonam Hess MD When: 1-2 weeks post OP if you need an appointment please call [phone] Test Results: Test results from this visit will be discussed in further detail at your follow- up appointment, if applicable. Discharge Plan Admission Attending Provider: Poonam Hess Primary Care Provider: Elva Wang NP Discharge Orders/Prescriptions Prescriptions: No Action sumatriptan succinate [Imitrex] 100 mg Tablet 100 mg PO Q2H PRN (Reason: Migraine Headache) multivitamin Tablet 1 tab PO DAILY escitalopram oxalate [Lexapro] 20 mg Tablet 20 mg PO DAILY Referrals / Follow Up: Elva Wang NP, MEDICAL SCIENTIFIC OFFICER-C [Primary Care Provider] - Disposition Disposition (needs filled in before D/C Order can be placed): Home, Self Care
--- NOTE | 2022-09-17 08:00 | EMB_PTH ---
PATIENT: JEANNE BLANKENSHIP LOC: [facility] [place] U#:[id number] AGE/SX: 31/F ROOM: RE09/17/[address]: Dr. Poonam Hess, MDDOB: 1990 BED: DIS: 09/17/2022 SPEC #: [id number] RECD: 09/17/22 10:48 STATUS: ROBYN ALIREZA #: [id number] DESTINEY: 09/17/22 08:[address]: Poonam Hess DEPT: SURGICAL PATHOLOGY RECD BY: Anusha Evans ENTERED: 09/17/22 11:37 SP TYPE: ENDOM BX/C CHANELLE DR: Elva Cross, MICHAEL Tissues: Endometrium, NOS Procedures: Surgery Specimen Level IV HEADER OPERATION: Hysteroscopy, D & C Symphion PRE-OP DIAGNOSIS: Abnormal uterine bleeding, endometrial polyp TISSUE SUBMITTED: Endometrial curettings MICROSCOPIC DIAGNOSIS Endometrial curettings: Predominantly secretory endometrium. Fragments of benign ecto- and endocervical mucosa with chronic inflammation and squamous metaplasia. See comment. COMMENT The specimen also shows polypoid fragments of benign endometrial tissue, may represents fragments of polyp, fragments of weakly proliferative endometrium with glandular breakdown and fragments of endometrium with changes consistent with exogenous hormone effects. Clinical correlation and appropriate follow up are necessary. MICROSCOPIC DESCRIPTION Slides are reviewed. GROSS DESCRIPTION Received in fixative is one container labeled with the patient's name and designated endometrial curettings. The specimen consists of multiple irregular fragments of red-choudhury soft tissue that in aggregate measure 2.5 x 2.5 x 0.2 cm. The specimen is totally submitted in one cassette. / AM:jg 09/17/2022 TC:5 CPT: 57073
== END 2022-09-17 09:37 | disposition home or self-care (01) ==
LOC: SDC 06:27 → AC 06:29
PROVIDERS: PCP Nurse Practitioner; Referring Provider Obstetrics & Gynecology; Visit Provider Obstetrics & Gynecology
PROC: 0UB98ZZ Excision of Uterus, Via Natural or Artificial Opening Endoscopic (ICD-10-PCS; CPT 58558; principal; 2022-09-17 07:45)
DX: N84.0 Polyp of corpus uteri (principal); F31.9 Bipolar disorder, unspecified; N93.9 Abnormal uterine and vaginal bleeding, unspecified; F17.290 Nicotine dependence, other tobacco product, uncomplicated
CPT/HCPCS: 58558; 00952; 81025; 88305; J7120; J2405

== ENCOUNTER 2023-10-06 14:31 | Emergency (ER) | payer MEDICAID, SELFPAY ==
[2023-10-06 14:31] VITALS: PULSE 76; RESP 12; TEMP 35.8; O2SAT 99
[2023-10-06 14:32] VITALS: BP 109/72; PULSE 78; RESP 12; TEMP 35.8; O2SAT 99; BMI 32.1
--- NOTE | 2023-10-06 15:42 | EX.ED.VIS.HA ---
HPI History of Present Illness Chief Complaint: Headache Narrative Narrative: 32-year-old female presenting with headache. She states she has a history of migraines and is out of her Imitrex which she normally takes for migraines. She states her insurance company will only cover started about a month. She states has gone through more than she typically this month. She denies fevers, chills, sore throat, cough, shortness of breath. She denies chest pain or abdominal pain. She denies urinary complaints. Patient states her headache is very typical of her head migraines. Denies any head trauma. Patient also states that her right knee hurts. She does remember doing anything to it. She notes that it clicks and pops at times when she ambulates. She also states that she does not keep it slightly bent when she is relaxing sometimes able to ache and throb. She points to the medial joint line. [facility] Medical History Bipolar disorder Closed fracture of tuft of distal phalanx of left index finger Depression Leg cramps Migraine Shortness of breath on exertion Smoker Strain of left index finger Home Medications sumatriptan succinate 100 mg tablet (Imitrex) 100 mg PO Q2H PRN Migraine Headache 05/04/21 [History Last Taken Unknown] escitalopram oxalate 20 mg tablet (Lexapro) 20 mg PO DAILY 09/11/22 [History Last Taken Unknown] multivitamin 1 tab PO DAILY 09/11/22 [History Last Taken Unknown] sumatriptan succinate 100 mg tablet (Imitrex) See Rx Instructions PO .COMPLEX #7 tabs 10/06/23 [Rx Last Taken Unknown] Allergy/AdvReac Type Severity Reaction Status Date / Time No Known Allergies Allergy Verified 10/06/23 14:31 Surgical History History of bilateral tubal ligation Social History Smoking Status: Current every day smoker tobacco type: cigarettes ROS ROS ED Constitutional Constitutional ED: Denies chills, fever(s) or sweats Eyes Eyes: Denies blurry vision or change in vision ENT ENT ED: Denies ear pain or sore throat Cardiovascular Cardiovascular: Denies chest pain, palpitations or racing heartbeat Respiratory/Chest Respiratory/Chest: Denies cough, dyspnea or sputum Gastrointestinal Gastrointestinal: Reports nausea; Denies abdominal pain, constipation, diarrhea or vomiting Genitourinary Genitourinary ED: Denies dysuria, hematuria or urinary frequency Musculoskeletal Musculoskeletal: Reports other Details: right knee pain ; Denies arthralgias, myalgias or neck pain Integumentary Denies abscess, Abrasions or rash Neurologic Neurologic: Reports headache(s) and other; Denies paresthesias or weakness Psychiatric Psychiatric: Denies anxiety, depression, suicidal ideation or suicidal thoughts Endocrine Endocrinology: Denies polydipsia or polyuria EXAM Physical Exam Const Vital Signs: 10/06/23 14:31 10/06/23 14:32 10/06/23 17:03 Temperature 96.5 F L 96.5 F L 96 F L Temperature Source Temporal Temporal Pulse Rate 76 78 63 Respiratory Rate 12 12 14 Blood Pressure 109/72 128/67 H Blood Pressure Mean 84 87 Pulse Ox 99 99 100 Oxygen Delivery Method Room Air Room Air Positive well nourished General Appearance ED: NAD; Negative for pallor HEENT Reports normocephalic atraumatic Eyes PERRL and EOMs intact bilaterally Neck no lymphadenopathy Resp normal respiratory effort Cardio regular rate and regular rhythm Extremity Extremity Narrative: There is tenderness palpation along the medial joint line of the right knee. No obvious deformity. No ligamentous laxity. No patellar tenderness. Right knee extensor mechanism is intact Neuro oriented x3 and CN's II-XII intact bilaterally Neuro Narrative: No focal neurologic deficits or lateralizing signs or symptoms Sensorium / Orientation: awake and alert Motor Exam: strength 5/5 throughout Psych mental status grossly normal Skin General Skin Exam: Negative for jaundice or pallor MDM MDM MDM Narrative Medical decision making narrative: Patient presenting with migraine headache which is typical of her migraines. She is requesting Imitrex IM. This was ordered for her. She is also given Zofran for nausea. Also complaining of right knee pain and there is no evidence of ligamentous laxity on examination. Pain with full extension. Tenderness on the medial joint line. I suspect she has a meniscus tear. Will obtain x-ray of the right knee. Right knee x-ray 4 views on my interpretation is no acute process. Radiology interprets and agrees. On reevaluation she is feeling much better. I wrote her prescription for Imitrex. She acknowledges that her insurance will not cover it but she will pay the cost and states that it is $2 or so a pill. Return precautions were discussed. Impression: 1. Headache 2. Right knee strain Lab Data Attestation: I reviewed the patient's lab results. Radiography Diagnostic Testing: Clinical Impression(s) from Imaging Studies Knee X-Ray 10/06/23 15:50 IMPRESSION: Normal x-ray examination of the knee. Electronically Signed: Willis Bryant MD at 16:14 EDT , Discharge Plan Triage Chief Complaint: Headache Other Complaint: Lower Extremity Injury ED Provider: William Jovel Dx/Rx/DC Orders Instructions: Self-Care for Headaches, ED Meniscal Injury Knee Poss Prescriptions: New sumatriptan succinate [Imitrex] 100 mg tablet See Rx Instructions .ROUTE .COMPLEX Qty: 7 0RF Rx Instructions: take 1 tab at onset of headache; if no relief, may repeat 1 tab after at least 2 hrs; max = 2 tabs/24 hrs No Action sumatriptan succinate [Imitrex] 100 mg Tablet 100 mg PO Q2H PRN (Reason: Migraine Headache) multivitamin Tablet 1 tab PO DAILY escitalopram oxalate [Lexapro] 20 mg Tablet 20 mg PO DAILY Primary Care Provider: Elva Cross NP Referrals: Elva Cross LONG DISTANCE OPERATOR, LONG DISTANCE OPERATOR-C [Primary Care Provider] - Disposition Disposition: Home, Self Care Discharge Date/Time: 10/06/23 17:04
--- NOTE | 2023-10-06 15:50 | RAD_ITS ---
STUDY: X-RAY - RIGHT KNEE REASON FOR EXAM: Female, 32 years old. pain TECHNIQUE: 4 view(s) of the knee. COMPARISON: None. FINDINGS: Normal visualized distal femur. Normal visualized proximal tibia and fibula. Normal proximal tibiofibular articulation. There is no demonstrated fracture. Normal medial femorotibial compartment. Normal lateral femorotibial compartment. Normal patellofemoral articulation. There is no demonstrated joint effusion. The soft tissue structures are unremarkable. RAD/Knee 4 or More Views IMPRESSION: Normal x-ray examination of the knee. Electronically Signed: Willis Bryant MD at 16:14 EDT ,
[2023-10-06] MEDS: SUMAtriptan 6 MG/0.5 ML Vial SC (16:31)
[2023-10-06] MEDS: Ondansetron ODT 4 MG Tablet PO (16:31)
[2023-10-06 17:03] VITALS: BP 128/67; PULSE 63; RESP 14; TEMP 35.5; O2SAT 100
== END 2023-10-06 17:04 | disposition home or self-care (01) ==
PROVIDERS: Emergency Provider Student in an Organized Health Care Education/Training Program; PCP Nurse Practitioner; Visit Provider Student in an Organized Health Care Education/Training Program
DX: R51.9 Headache, unspecified (principal); F31.9 Bipolar disorder, unspecified; S83.91XA Sprain of unspecified site of right knee, initial encounter; X58.XXXA Exposure to other specified factors, initial encounter; R11.0 Nausea; F17.210 Nicotine dependence, cigarettes, uncomplicated; Z79.899 Other long term (current) drug therapy
CPT/HCPCS: 73564; 96372; 99283; J3030